=== PATIENT | female | born 1980 | race Two or more races ===

== ENCOUNTER 2022-08-31 07:16 | Outpatient (CLI) | payer OTHER | END 2022-08-31 07:22 | disposition home or self-care (01) | LOC: NUCLEAR 07:16 | PROVIDERS: ATTEND Internal Medicine | DX: K31.84 Gastroparesis (principal); E11.43 Type 2 diabetes mellitus with diabetic autonomic (poly)neuropathy; N11.0 Nonobstructive reflux-associated chronic pyelonephritis | CPT/HCPCS: 78264; A9541 ==